=== PATIENT | female | born 1990 | race Caucasian/White ===

== ENCOUNTER 2023-08-11 13:55 | Emergency (ER) | payer OTHER, SELFPAY ==
--- NOTE | ~2023-08-11 | US_ITS ---
EXAMINATION: US VENOUS WITH DOPPLER UPPER EXTREMITY, RIGHT CLINICAL INFORMATION: Right arm pain and numbness COMPARISON: None available. TECHNIQUE: Ultrasound of the upper extremity is performed using compression sonography and color and pulse Doppler flow with assessment of augmentation of flow. There is also imaging and Doppler assessment of the jugular and subclavian veins. Spectral analysis with color-flow imaging is performed. FINDINGS: Respiratory variation, normal compression, and augmented flow are noted throughout the upper extremity including the axillary, brachial, cubital, and radial and ulnar veins. There is normal flow in the internal jugular and subclavian veins. There is no visible deep or superficial thrombophlebitis. US/US venous duplex UE RT IMPRESSION: No acute DVT demonstrated in the right upper extremity.
[2023-08-11 14:43] VITALS: BP 114/72; PULSE 67; RESP 16; TEMP 36.4; O2SAT 100; BMI 27.5
--- NOTE | 2023-08-11 14:47 | ED.NEUROSD ---
HPI - Neuro Symptoms/Deficit General Chief Complaint: Neuro Symptoms/Deficit Stated Complaint: R Arm Numbness Time Seen by Provider: 08/11/23 17:06 Source: patient Limitations: no limitations History of Present Illness HPI Narrative: 33 years old with no significant past medical history presents to the emergency room for paresthesia of the right hand, right wrist and right forearm. Patient reports also burning sensation. Reports the symptoms started this morning, not associated with headache, blurry vision or slurred speech. Patient denies recent trauma. Reports that at times she wakes up with numbness and paresthesia but usually symptoms are temporary. She denies chest pain, shortness of breath, abdominal pain nausea or vomiting. Related Data Allergies Allergy/AdvReac Type Severity Reaction Status Date / Time No Known Allergies Allergy Verified 08/11/23 14:47 Review of Systems Review of Systems: Yes all other systems are reviewed and are negative Physical Exam Vital Signs: Vital Signs: Last Vital Signs Temp 97.6 F 08/11/23 14:43 Pulse 67 08/11/23 14:43 Resp 16 08/11/23 14:43 BP 114/72 08/11/23 14:43 Pulse Ox 100 08/11/23 14:43 O2 Del Method Room Air 08/11/23 14:43 BMI result Body Mass Index 27.5 General: Alert, Not in Distress Skin: No rash, warm HEENT: Atraumatic, No Exudate or Pharyngeal Erythema Resp: Normal Breath sounds bilaterally Cardio: Regular rate and Rhythm, Normal S1, S2 ABD: Abd soft, non tender, no guarding or rebound. Normal Bowel sounds. : No cva tenderness Neuro: Alert, oriented x4, PERRL Strenght 5/5 on all extremities Sensation is reduced in territory of R median nerve incling first threed palmar digit, wrist and forearm Index to nose: normal Cranial Nerves II-XII grossly intact No dysarthria, or aphasia No neglet. Visual ledezma are normal bilaterally Psych: Cooperative, NO SI MSK: cap refill less than 2 seconds. no deformity Course Course Course Narrative: This is a rapid medical exam: Additional HPI, ROS, PE not included below will be deferred to primary provider. Patient is a 33-year old female presenting to the ED with complaint of numbness to anterior forearm and burning sensation radiating up arm into shoulder/lateral neck since 5am. Denies recent fall or other trauma. Is not on OCPs, no history of PE/DVT, unsure of family hx. Denies numbness/tingling to fingers. Full ROM. Plan: U/S Medical Decision Making Medical Decision Making MDM Narrative: Presented to the emergency room with symptoms consistent with right median nerve neurapraxia/peripheral neuropathy, inflammation. Physical exam showed no signs of lateralizing sign. At this time wanting symptoms are consistent with peripheral neuropathy. Plan Reassurance Velcro splint right wrist Will recommend to follow up with PCP Independent Interpretation I performed an independent interpretation of an: Ultrasound (A negative ultrasound) Discharge Plan Discharge Clinical Impression: Carpal tunnel syndrome Patient Disposition: Home, Self-Care Additional Instructions: You were seen emergency room for symptoms consistent with the ulnar carpal syndrome/peripheral neuropathy. Symptoms should improve with the use of ibuprofen and Tylenol please take ibuprofen 400 mg 3 times a day for the next 5 days. We also recommend to use during the day Velcro splint which may improve your symptoms. Please follow-up with your primary care physician in a week if symptoms have not completely resolved.
[2023-08-11 17:33] VITALS: RESP 18
== END 2023-08-11 17:34 | disposition home or self-care (01) ==
PROVIDERS: Emergency Provider Student in an Organized Health Care Education/Training Program; PCP Internal Medicine
DX: G56.01 Carpal tunnel syndrome, right upper limb (principal); R20.2 Paresthesia of skin; M79.601 Pain in right arm
CPT/HCPCS: 93971; 99283; 99284